=== PATIENT | female | born 1970 | race Two or more races ===

== ENCOUNTER → 2021-12-01 | Outpatient (CLI) | payer OTHER ==
[2021-12-01 17:09] LABS: Albumin, Blood 3.9 g/dL (3.4-5.0); Bilirubin, Total 0.3 mg/dL (0.1-1.0); Bun/Creatinine Ratio 18.5 (12.0-20.0); Calcium, Blood 9.3 mg/dL (8.5-10.1); Creatinine, Blood 0.49 mg/dL (0.40-1.00); Globulin, Blood 4.1 g/dL (2.2-4.0); Potassium, Blood 3.9 mmol/L (3.5-5.5)
== END | disposition home or self-care (01) ==
LOC: LAB SHORT 09:25
PROVIDERS: Registered Nurse Community Health
DX: R53.83 Other fatigue (principal)
CPT/HCPCS: 80053

== ENCOUNTER 2024-03-07 07:59 | Emergency (ER) | payer OTHER ==
[~2024-03-07] VITALS: Ht 170.2 cm; Wt 83.9 kg
[2024-03-07] MEDS ORDERED: MethylPREDNISolone Sod Succ 125 MG Vial IV ONE (08:25)
[2024-03-07] MEDS ORDERED: Methocarbamol 500 MG Tab PO ONE (08:25)
[2024-03-07] MEDS ORDERED: Morphine Sulfate 4 MG/1 ML Injection IV ONE (08:25)
[2024-03-07] MEDS ORDERED: DiphenhydrAMINE HCl 50 MG/ML 1ML Vial IV ONE (08:30)
[2024-03-07 08:50] LABS: BASOPHILS ABSOLUTE AUTO 0.02 K/mm3 (0.00-0.23); BASOPHILS PERCENT AUTO 0 % (0-2); EOSINOPHILS ABSOLUTE AUTO 0.15 K/mm3 (0.00-0.68); EOSINOPHILS PERCENT AUTO 2 % (0-6); Hematocrit 34.3 % (33.0-51.0); Hemoglobin 10.8 g/dL (11.5-16.0); IMMATURE GRAN ABSOLUTE AUTO 0.04 K/mm3 (0.00-0.10); IMMATURE GRAN PERCENT AUTO 1 % (0-1); LYMPHOCYTES ABSOLUTE AUTO 1.57 K/mm3 (0.84-5.20); LYMPHOCYTES PERCENT AUTO 23 % (21-46); MONOCYTES ABSOLUTE AUTO 0.54 K/mm3 (0.16-1.47); MONOCYTES PERCENT AUTO 8 % (4-13); Mean Corpuscular HGB 23.6 pg (26.0-34.0); Mean Corpuscular HGB Conc 31.5 g/dL (31.5-36.5); Mean Corpuscular Volume 75 fL (80-100); Mean Platelet Volume 9.5 fL (9.1-12.4); NEUTROPHILS ABSOLUTE AUTO 4.49 K/mm3 (1.96-9.15); NEUTROPHILS PERCENT AUTO 66 % (41-73); Platelet Count 319 K/mm3 (150-400); RDW Coefficient Variation 16.5 % (11.7-14.2); RDW Standard Deviation 44.6 fL (35.1-46.3); Red Blood Cell Count 4.58 M/mm3 (3.80-5.20); White Blood Cell Count 6.81 K/mm3 (4.00-11.30)
[2024-03-07 09:08] LABS: Albumin, Blood 3.3 g/dL (3.4-5.0); Albumin/Globulin Ratio 0.8 (0.8-1.8); Bilirubin, Total 0.4 mg/dL (0.1-1.0); Bun/Creatinine Ratio 15.6 (12.0-20.0); Calcium, Blood 8.8 mg/dL (8.5-10.1); Creatinine, Blood 0.58 mg/dL (0.40-1.00); Globulin, Blood 4.1 g/dL (2.2-4.0); Potassium, Blood 3.7 mmol/L (3.5-5.5); Total Protein, Blood 7.4 g/dL (6.4-8.2)
[2024-03-07] MEDS ORDERED: Robaxin750 MG PO (10:10)
[2024-03-07 10:45] VITALS: BP 133/70
== END 2024-03-07 10:45 | disposition home or self-care (01) ==
LOC: ER 07:59
PROVIDERS: Student in an Organized Health Care Education/Training Program
DX: S16.1XXA Strain of muscle, fascia and tendon at neck level, initial encounter (principal); S13.4XXA Sprain of ligaments of cervical spine, initial encounter; D50.9 Iron deficiency anemia, unspecified; V89.2XXA Person injured in unspecified motor-vehicle accident, traffic, initial encounter; Z91.041 Radiographic dye allergy status; Z88.8 Allergy status to other drugs, medicaments and biological substances
CPT/HCPCS: 70450; 71260; 72125; 80053; 84484; 85025; 93005; 93010; 96374; 96375; 99284-25; A9270; J1200; J2270; J2919; Q9967

== ENCOUNTER → 2024-03-10 | Outpatient (CLI) | payer OTHER ==
[~2024-03-10] MED LIST: Robaxin750 MG PO
[2024-03-10 20:08] LABS: Follicle Stimulating Hormone 2.2 mIU/ml; Luteinizing Hormone 2.2 mIU/ml
== END | disposition home or self-care (01) ==
LOC: LAB 17:24 → LAB SHORT 17:24
PROVIDERS: Registered Nurse Community Health
DX: N92.0 Excessive and frequent menstruation with regular cycle (principal)
CPT/HCPCS: 83001; 83002

== ENCOUNTER 2024-12-08 08:18 | Day surgery (SDC) | payer OTHER ==
[~2024-12-08] VITALS: Ht 162.6 cm; Wt 90.3 kg
[2024-12-08] VITALS (17 sets, daily range): BP systolic 121–168; BP diastolic 61–84
[~2024-12-08 08:18] MED LIST changes: +ACET500 PO; +FERSU300 PO; +IBUP800 PO; +OXYC5 PO
[2024-12-08] MEDS ORDERED: CeFAZolin Sodium 2,000 MG in NS 100 ML IV SCH (08:25)
[2024-12-08] MEDS ORDERED: Bupivacaine 0.25% Epi 1:200000 30 ML Vial ONE (09:29)
[2024-12-08] MEDS ORDERED: Midazolam HCl 1MG / ML 2ML Vial ONE (09:52)
[2024-12-08] MEDS ORDERED: Morphine Sulfate 4 MG/1 ML Injection IV PRN (09:55)
[2024-12-08] MEDS ORDERED: Ondansetron HCl 2 MG / ML 2ML Vial IV PRN ×2 (09:55→11:55)
[2024-12-08] MEDS ORDERED: Metoclopramide HCl 5MG / ML 2ML Vial IV PRN ×2 (09:55→11:55)
[2024-12-08] MEDS ORDERED: Albuterol 2.5 MG/3 ML VIAL INH PRN (09:55)
[2024-12-08] MEDS ORDERED: HYDROmorphone HCl/Pf 1MG SYR IV PRN ×2 (09:55→12:00)
[2024-12-08] MEDS ORDERED: FentaNYL Citrate 50 MCG/ML 2 ML Injection IV PRN ×2 (09:55)
[2024-12-08] MEDS ORDERED: Midazolam HCl 1MG / ML 2ML Vial IV ONE (10:00)
[2024-12-08] MEDS ORDERED: FentaNYL Citrate 50 MCG/ML 2 ML Injection ONE ×3 (10:03→10:52)
[2024-12-08] MEDS ORDERED: Dexamethasone Sod Phos 10 MG/ML 1ML VIAL ONE (10:08)
[2024-12-08] MEDS ORDERED: Ondansetron HCl 2 MG / ML 2ML Vial ONE (10:08)
[2024-12-08] MEDS ORDERED: Ketorolac Tromethamine 30mg Vial ONE (10:15)
[2024-12-08] MEDS ORDERED: Rocuronium Bromide 10 MG/ML 5ML Injection IV ONE (10:15)
[2024-12-08] MEDS ORDERED: Sugammadex Sodium 200 MG/2ML SDV (100 MG/ML) ONE (11:12)
[2024-12-08] MEDS ORDERED: Naloxone HCl 0.4MG / ML 1ML Vial IV PRN (11:55)
[2024-12-08] MEDS ORDERED: Ketorolac Tromethamine 30mg Vial IV PRN (12:10)
--- NOTE | 2024-12-08 12:47 | NUR ---
ARRIVAL TO SURGICAL FLOOR PT ARRIVED TO SURG FLOOR AT 1230 VIA GURNEY. POD 0 LAP HYSTERECTOMY. A&O x4, VSS, HRR, LUNGS CLEAR. LAP SITES x4 w/WOUND GLUE, C/D/I. HAL PAD IN PLACE, MINIMAL DRAINAGE. STATES NAUSEA, MEDICATED PER EMAR. IRISH SPEAKING - INTERPRETOR & FAMILY AT BEDSIDE. SNACKS AND DRINKS GIVEN. CALL LIGHT WITHIN REACH.
[2024-12-08] MEDS ORDERED: CLIMARA1 EACH TOP (13:54)
[2024-12-08] MEDS ORDERED: SIME80CH PO (13:55)
--- NOTE | 2024-12-08 16:50 | NUR ---
SHIFT SUMMARY ADMITTED ON 12/08 FOR HYSTERECTOMY. A&O x4, VSS, HRR, LUNGS CLEAR. ABDOMINAL LAP SITES x4, C/D/I. TOLERATING REGULAR DIET WELL. STATES NO PAIN. EPISODES OF NAUSEA THIS AFTERNOON, MEDICATED PER EMAR, AND HAS SINCE RESOLVED. VOIDING SUCCESSFULLY, POST VOID PERFORMED, 0 FOUND. STATES FEELING TIRED, BUT WANTS TO GO HOME TONIGHT. 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 CALL LIGHT WITHIN REACH.
--- NOTE | 2024-12-08 17:49 | NUR ---
DISCHARGE SUMMARY DISCHARGE INSTRUCTIONS REVIEWED & GIVEN. ESCORTED OUT VIA WC.
== END 2024-12-08 17:33 | disposition home or self-care (01) ==
LOC: ORSCMMR 08:18 → ORD 10:00 → SURS 12:20 → ORSCMMR 17:33
PROVIDERS: Obstetrics & Gynecology
PROC: 0UT7FZZ Resection of Bilateral Fallopian Tubes, Via Natural or Artificial Opening With Percutaneous Endoscopic Assistance (ICD-10-PCS; principal; 2024-12-08 10:00)
PROC: 0UT9FZZ Resection of Uterus, Via Natural or Artificial Opening With Percutaneous Endoscopic Assistance (ICD-10-PCS; principal; 2024-12-08 10:00)
PROC: 0UT2FZZ Resection of Bilateral Ovaries, Via Natural or Artificial Opening With Percutaneous Endoscopic Assistance (ICD-10-PCS; principal; 2024-12-08 10:00)
DX: D25.9 Leiomyoma of uterus, unspecified (principal); N80.03 Adenomyosis of the uterus; N83.292 Other ovarian cyst, left side; N83.291 Other ovarian cyst, right side; N80.103 Endometriosis of bilateral ovaries, unspecified depth; E66.9 Obesity, unspecified; Z68.34 Body mass index [BMI] 34.0-34.9, adult; F32.A Depression, unspecified
CPT/HCPCS: 86850; 86900; 86901; 88307; A9270; J0690; J1100; J1885; J2250; J2405; J2704; J2765; J3010; J7120